=== PATIENT | female | born 1995 | race Caucasian/White ===

== ENCOUNTER 2018-08-11 02:37 | Emergency (ER) | payer OTHER ==
[~2018-08-11] VITALS: Ht 157.5 cm; Wt 90.9 kg
[2018-08-11 09:11] VITALS: BP 130/68; PULSE 94
== END 2018-08-11 09:12 | disposition home or self-care (01) ==
LOC: COL.ER 02:37
DX: F10.129 Alcohol abuse with intoxication, unspecified (principal); Y90.8 Blood alcohol level of 240 mg/100 ml or more